=== PATIENT | female | born 1950 | race Two or more races ===

== ENCOUNTER 2020-12-15 23:59 | Emergency (ER) | payer OTHER, MEDICAID ==
[~2020-12-15] VITALS: Ht 172.7 cm; Wt 77.1 kg
[2020-12-16 00:05] VITALS: BP 134/63
[2020-12-16] MEDS ORDERED: ONDANSETRON ODT 4 MG TAB PO ONE (01:45)
[2020-12-16] MEDS ORDERED: ACETAMINOPHEN 500 MG TAB PO ONE (01:45)
== END 2020-12-16 06:28 | disposition home or self-care (01) ==
LOC: ER 12-16 00:07
DX: S06.0X0A Concussion without loss of consciousness, initial encounter (principal); S13.4XXA Sprain of ligaments of cervical spine, initial encounter; S73.102A Unspecified sprain of left hip, initial encounter; R07.89 Other chest pain; I11.0 Hypertensive heart disease with heart failure; I50.9 Heart failure, unspecified; Z86.73 Personal history of transient ischemic attack (TIA), and cerebral infarction without residual deficits; Z90.710 Acquired absence of both cervix and uterus; Y04.2XXA Assault by strike against or bumped into by another person, initial encounter; Y93.89 Activity, other specified; Y92.89 Other specified places as the place of occurrence of the external cause; Y99.8 Other external cause status
CPT/HCPCS: 70450; 71250; 72125; 74176; 99285; Q0162

== ENCOUNTER 2021-02-14 08:44 | Emergency (ER) | payer OTHER, MEDICAID ==
[2021-02-14] MEDS ORDERED: SODIUM CHLORIDE 0.9% 1,000 ML IV ONE (09:15)
[2021-02-14] MEDS ORDERED: ONDANSETRON HCL 4 MG/2 ML VIAL IV ONE (09:45)
[2021-02-14] MEDS ORDERED: MORPHINE SULFATE INJECTION 2 MG/ML SYRG IV ONE (09:45)
[2021-02-14 10:35] LABS: Basophils # (auto) 0 10 ^3/uL (0-0.2); Basophils % (auto) 0.5 % (0.0-2.0); Eosinophils # (auto) 0.1 10 ^3/uL (0-0.8); Eosinophils % (auto) 1.2 % (0.0-7.0); Hematocrit 42.4 % (36.0-46.0); Hemoglobin 14.2 g/dL (12.2-16.2); Lymphocytes # (auto) 0.9 10 ^3/uL (0.4-5.4); Lymphocytes % (auto) 19.2 % (10.0-50.0); Mean Corpuscular Hemoglobin 30.4 pg (28.0-32.0); Mean Corpuscular Hgb Conc. 33.5 g/dL (32.0-36.0); Mean Corpuscular Volume 90.8 fL (80.0-100.0); Monocytes # (auto) 0.3 10 ^3/uL (0-1.3); Monocytes % (auto) 6.6 % (0.0-12.0); Neutrophils # (auto) 3.5 10 ^3/uL (1.6-8.6); Neutrophils % (auto) 72.5 % (37.0-80.0); Nucleated Red Blood Cells % 0.2 %; Red Blood Cells 4.67 10^6/uL (4.0-5.20); Red Cell Distribution Width 13.9 % (11.8-14.3); White Blood Cell 4.8 10^3/uL (4.4-10.8)
[2021-02-14 10:40] LABS: Urine Bacteria FEW /hpf (None Seen); Urine Blood Negative /uL (Negative); Urine WBC 6 /hpf (0 - 5)
[2021-02-14 11:28] LABS: Albumin 3.1 g/dL (3.4-5.0); Magnesium 2.5 mg/dL (1.6-2.6)
[2021-02-14 11:30] LABS: BUN/Creatinine Ratio 25.4; Potassium 3.7 mmol/L (3.5-5.1); Total Protein 6.2 g/dL (6.4-8.2)
[2021-02-14 11:37] LABS: Bilirubin, Total 0.9 mg/dL (0.2-1.0)
[2021-02-14 13:23] VITALS: BP 160/70
[2021-02-14] MEDS ORDERED: fentaNYL Drip 2500mCg/250mlNS 250 ML IV SCH (13:45)
== END 2021-02-14 13:41 | disposition home or self-care (01) ==
LOC: ER 08:44 → EDBD 08:44 → ER 13:41
DX: R51.9 Headache, unspecified (principal); M62.838 Other muscle spasm; N39.0 Urinary tract infection, site not specified; E46 Unspecified protein-calorie malnutrition; I11.0 Hypertensive heart disease with heart failure; I50.9 Heart failure, unspecified; Z68.28 Body mass index [BMI] 28.0-28.9, adult; Z86.73 Personal history of transient ischemic attack (TIA), and cerebral infarction without residual deficits; Z90.710 Acquired absence of both cervix and uterus; W19.XXXA Unspecified fall, initial encounter; Y93.89 Activity, other specified; Y92.89 Other specified places as the place of occurrence of the external cause; Y99.8 Other external cause status
CPT/HCPCS: 36415; 70450; 71045; 72125; 80053; 81001; 83735; 85025; 93005; 96361; 96374; 96375; 99285; J2270; J2405; J7030

== ENCOUNTER 2023-10-29 02:52 | Emergency (ER) | payer OTHER, MEDICAID ==
[~2023-10-29] VITALS: Ht 157.5 cm; Wt 65.0 kg
[2023-10-29 03:48] LABS: Basophils # (auto) 0 10 ^3/uL (0-0.2); Basophils % (auto) 0.9 % (0.0-2.0); Eosinophils # (auto) 0.2 10 ^3/uL (0-0.8); Eosinophils % (auto) 4.9 % (0.0-7.0); Hematocrit 36.1 % (36.0-46.0); Hemoglobin 12.4 g/dL (12.2-16.2); Lymphocytes # (auto) 0.9 10 ^3/uL (0.4-5.4); Lymphocytes % (auto) 25.7 % (10.0-50.0); Mean Corpuscular Hemoglobin 31.1 pg (28.0-32.0); Mean Corpuscular Hgb Conc. 34.4 g/dL (32.0-36.0); Mean Corpuscular Volume 90.4 fL (80.0-100.0); Monocytes # (auto) 0.3 10 ^3/uL (0-1.3); Monocytes % (auto) 7.9 % (0.0-12.0); Neutrophils # (auto) 2.1 10 ^3/uL (1.6-8.6); Neutrophils % (auto) 60.6 % (37.0-80.0); Red Blood Cells 3.99 10^6/uL (4.0-5.20); Red Cell Distribution Width 13.6 % (11.8-14.3); White Blood Cell 3.4 10^3/uL (4.4-10.8)
[2023-10-29 03:50] VITALS: PULSE 68; RESP 16; O2SAT 96
[2023-10-29 03:52] LABS: Chloride 115 mmol/L (98-107); Potassium 4.1 mmol/L (3.5-5.1); Sodium 143 mmol/L (136-145)
[2023-10-29 03:53] LABS: Anion Gap 2 (5-15); Calcium 9.2 mg/dL (8.5-10.1); Carbon Dioxide 26 mmol/L (20-30)
[2023-10-29 03:58] LABS: Blood Urea Nitrogen 18 mg/dL (9-23); Glucose 108 mg/dL (74-106)
[2023-10-29 04:00] VITALS: TEMP 98.4
[2023-10-29 08:00] VITALS: PULSE 75; RESP 14; O2SAT 96
[2023-10-29 08:30] LABS: Urine Bacteria FEW /hpf (None Seen); Urine Blood Negative /uL (Negative); Urine Color Yellow (Yellow); Urine Protein, UAD Negative (Negative); Urine Specific Gravity 1.015 (1.001-1.035); Urine Urobilinogen 2 mg/dL (Negative); Urine WBC 54 /hpf (0 - 5); Urine pH 6.5 (5.0-9.0)
[2023-10-29 08:32] LABS: Urine Clarity Cloudy (Clear)
[2023-10-29] MEDS ORDERED: NITR-87 PO (08:48)
[2023-10-29 09:00] VITALS: BP 123/54; PULSE 74; RESP 14; O2SAT 96
== END 2023-10-29 10:54 | disposition home or self-care (01) ==
LOC: EDBD 02:52 → ER 02:52
DX: I11.0 Hypertensive heart disease with heart failure (principal); I50.9 Heart failure, unspecified; E44.1 Mild protein-calorie malnutrition; N39.0 Urinary tract infection, site not specified; Z68.26 Body mass index [BMI] 26.0-26.9, adult; Z86.73 Personal history of transient ischemic attack (TIA), and cerebral infarction without residual deficits; Z90.710 Acquired absence of both cervix and uterus
CPT/HCPCS: 36415; 70450; 80048; 81001; 84484; 85025; 93005

== ENCOUNTER 2024-01-23 12:53 | Emergency (ER) | payer OTHER, MEDICAID ==
[~2024-01-23] VITALS: Ht 157.5 cm; Wt 48.1 kg
[~2024-01-23 12:53] MED LIST: NITR-87 PO
[2024-01-23 13:30] VITALS: PULSE 16; RESP 14; O2SAT 95
[2024-01-23 13:35] VITALS: TEMP 98.6
[2024-01-23 14:13] LABS: Basophils # (auto) 0 10 ^3/uL (0-0.2); Basophils % (auto) 0.5 % (0.0-2.0); Eosinophils # (auto) 0 10 ^3/uL (0-0.8); Hematocrit 38.5 % (36.0-46.0); Hemoglobin 13.2 g/dL (12.2-16.2); Lymphocytes # (auto) 0.8 10 ^3/uL (0.4-5.4); Lymphocytes % (auto) 16.3 % (10.0-50.0); Mean Corpuscular Hemoglobin 30.8 pg (28.0-32.0); Mean Corpuscular Hgb Conc. 34.4 g/dL (32.0-36.0); Mean Corpuscular Volume 89.5 fL (80.0-100.0); Monocytes # (auto) 0.3 10 ^3/uL (0-1.3); Monocytes % (auto) 6.7 % (0.0-12.0); Neutrophils # (auto) 3.6 10 ^3/uL (1.6-8.6); Neutrophils % (auto) 75.5 % (37.0-80.0); Nucleated Red Blood Cells % 0.1 %; Platelet Count (auto) 129 10^3/uL (140-450); Red Cell Distribution Width 14.3 % (11.8-14.3); White Blood Cell 4.8 10^3/uL (4.4-10.8)
[2024-01-23 14:25] LABS: INR 1.07 (0.9-1.15); Partial Thromboplastin Time 27.1 SEC (24.5-34.5); Prothrombin Time 11.3 sec (9.3-11.8)
[2024-01-23 14:54] LABS: Alanine Aminotransferase 10 U/L (7-40); Alkaline Phosphatase 73 U/L (46-116); Calcium 9.6 mg/dL (8.7-10.4); Chloride 111 mmol/L (98-107)
[2024-01-23 14:55] LABS: Albumin 4.4 g/dL (3.2-4.8); Anion Gap 4 (5-15); Aspartate Aminotransferase 13 U/L (13-40); BUN/Creatinine Ratio 32.4 (10.0-20.0); Bilirubin, Total 1.6 mg/dL (0.2-1.0); Blood Urea Nitrogen 22 mg/dL (9-23); Carbon Dioxide 28 mmol/L (20-30); Glucose 119 mg/dL (74-106); Potassium 3.7 mmol/L (3.5-5.1); Sodium 143 mmol/L (136-145); Total Protein 6.3 g/dL (5.7-8.2)
[2024-01-23 16:00] VITALS: BP 161/65; PULSE 79; RESP 14; O2SAT 98
[2024-01-23 16:24] LABS: Urine Bacteria FEW /hpf (None Seen); Urine Blood Negative /uL (Negative); Urine Clarity Turbid (Clear); Urine Color Dark-Yellow (Yellow); Urine Mucus FEW (None Seen); Urine Protein, UAD TRACE (Negative); Urine Urobilinogen 3 mg/dL (Negative); Urine WBC 5 /hpf (0 - 5); Urine pH 5.5 (5.0-9.0)
[2024-01-23] MEDS ORDERED: NITR-87 PO (17:21)
== END 2024-01-23 17:14 | disposition left against medical advice (07) ==
LOC: ER 12:53 → EDBD 12:53 → ER 17:14
DX: S00.83XA Contusion of other part of head, initial encounter (principal); R07.89 Other chest pain; N39.0 Urinary tract infection, site not specified; I11.0 Hypertensive heart disease with heart failure; I50.9 Heart failure, unspecified; F41.9 Anxiety disorder, unspecified; Z53.29 Procedure and treatment not carried out because of patient's decision for other reasons; Z86.73 Personal history of transient ischemic attack (TIA), and cerebral infarction without residual deficits; Z98.890 Other specified postprocedural states; Z79.899 Other long term (current) drug therapy; W18.39XA Other fall on same level, initial encounter; Y93.89 Activity, other specified; Y92.89 Other specified places as the place of occurrence of the external cause; Y99.8 Other external cause status
CPT/HCPCS: 36415; 70450; 71250; 72125; 80053; 81001; 83735; 83880; 84484; 85025; 85610; 85730; 93005

== ENCOUNTER 2024-06-09 06:35 | Emergency (ER) | payer OTHER, MEDICAID ==
[~2024-06-09] VITALS: Ht 167.6 cm; Wt 57.2 kg
--- NOTE | 2024-06-09 06:51 | ECG ---
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
[2024-06-09] MEDS: LORazepam 0.5 MG TAB PO ONE (07:21)
[2024-06-09] MEDS: HYDROcodone-ACET 5/325MG TAB PO ONE (07:22)
--- NOTE | 2024-06-09 07:48 | ED.PDOC ---
History of Present Illness HPI Comments 74-year-old female brought in by EMS presents with a chief complaint of headache s/p syncope fall at home. Patient states that she was up talking to her and then had a syncopal episode and fell backwards hitting her head on the floor. Patient denies hitting anything on the fall down to the ground. Patient is on Plavix. Patient is alert and oriented x 4. Chief Complaint: Fall Injury Time Seen by MD: 06:55 Primary Care Provider: UNKNOWN Reviewed Notes: Medications, Allergies Allergies: Coded Allergies: NO KNOWN ALLERGIES (Unverified , 01/23/24) Home Meds Active Scripts Nitrofurantoin Monohydrate Mac (Macrobid) 100 Mg Cap, 100 MG PO BID for 7 Days, #14 CAP Prov:KATY APONTE DO 01/23/24 Nitrofurantoin Monohydrate Mac (Macrobid) 100 Mg Cap, 100 MG PO BID for 7 Days, #14 CAP Prov:CARRI MARCELINO MD 10/29/23 Information Source: Patient, Emergency Med Personnel Mode of Arrival: EMS Severity: Moderate Timing: Hours Duration: Since onset Prehospital treatment: None Past Medical History PAST MEDICAL HISTORY: CHF, CVA, HTN Surgical History: Hysterectomy 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: No Pertinent 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 History Family History Family History: Reviewed,noncontributory to illness, No family hx of Cancer, No family hx of DM, No family hx of Heart sierra, No family hx of HTN, No family hx ofKidney sierra, No family hx of Liver sierra, No family hx of Lung sierra, No family hx of Stroke Social History Smoker: Non-Smoker Alcohol: Denies ETOH Use Drugs: Denies Drug Use Lives In: Home Constitutional: denies: chills, diaphoresis, fatigue, fever, malaise, sweats, weakness, others EENTM: denies: blurred vision, double vision, ear bleeding, ear discharge, ear drainage, ear pain, ear ringing, eye pain, eye redness, hearing loss, mouth pain, mouth swelling, nasal discharge, nose bleeding, nose congestion, nose pain, photophobia, tearing, throat pain, throat swelling, voice changes, others Respiratory: denies: cough, hemoptysis, orthopnea, SOB at rest, shortness of breath, SOB with excertion, stridor, wheezing, others Cardiovascular: reports: syncope; denies: chest pain, dizzy spells, diaphoresis, Dyspnea on exertion, edema, irregular heart beat, left arm pain, lightheadedness, palpitations, PND, others Gastrointestinal: denies: abdomen distended, abdominal pain, blood streaked bowels, constipated, diarrhea, dysphagia, difficulty swallowing, hematemesis, melena, nausea, poor appetite, poor fluid intake, rectal bleeding, rectal pain, vomiting, others Genitourinary: denies: abnormal vagina bleeding, burning, dyspareunia, dysuria, flank pain, frequency, hematuria, incontinence, pain, , vagina discharge, urgency, others Neurological: reports: headache; denies: dizziness, fainting, left sided numbness, left sided weakness, numbness, paresthesia, pre-existing deficit, right sided numbness, right sided weakness, seizure, speech problems, tingling, tremors, weakness, others Musculoskeletal: denies: back pain, gout, joint pain, joint swelling, muscle pain, muscle stiffness, neck pain, others Integumetry: denies: bruises, change in color, change in hair/nails, dryness, laceration, lesions, lumps, rash, wounds, others Allergic/Immunocompromised: denies: Difficulty Healing, Frequent Infections, Hives, Itching, others Hematologic/Lymphatic: denies: anemia, blood clots, easy bleeding, easy bruising, swollen glands, others Endocrine: denies: excessive hunger, excessive sweating, excessive thirst, excessive urination, flushing, intolerance to cold, intolerance to heat, unexplained weight gain, unexplained weight loss, others Psychiatric: denies: anxiety, bipolar disorder, depression, hopeless, panic disorder, schizophrenia, sleepless, suicidal, others All Other Systems: Reviewed and Negative Physical Exam General Appearance: Moderate Distress, Thin HEENT: Normal ENT Inspection, Pharynx Normal, TMs Normal Neck: Full Range of Motion, Non-Tender, Normal, Normal Inspection Respiratory: Chest Non-Tender, Lungs Clear, No Accessory Muscle Use, No Respir atory Distress, Normal Breath Sounds Cardiovascular: No Edema, No JVD, No Murmur, No Gallop, Normal Peripheral Pulses, Regular Rate/Rhythm Breast Exam: Deferred Gastrointestinal: Non Tender, No Pulsatile Mass, Normal Bowel Sounds Genitalia: Deferred Pelvic: Deferred Rectal: Deferred Extremities: Non-tender (T and L SPINE), Pedal edema (TRACE), Tender (TO C- SPINE) 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 Was a procedure done?: No EKG EKG : Pulse Rate (adult): 66 [place]: Normal Cardiac Rhythm: NSR Block: None Hypertrophy: LVH ST: Normal Comments No ST changes Differential Dx Considerations may include: SYNCOPE, HEADACHE, NEAR-SYNCOPE , UTI, dehydration, electrolyte abnormality, acute coronary syndrome, intracranial hemorrhage X-Ray, Labs, Meds, VS Vital Signs Date Time Temp Pulse Resp B/P (MAP) Pulse Ox O2 Delivery O2 Flow Rate FiO2 06/09/24 09:00 97.9 64 14 146/67 (93) 99 97.9 06/09/24 07:48 66 06/09/24 06:37 68 06/09/24 06:35 97.8 65 18 178/73 (108) 96 Lab Test 06/09/24 08:16 06/09/24 07:23 Range/Units Troponin I High Sensitivity 5 4 </=34 ng/L White Blood Count 4.7 4.4-10.8 10^3/uL Red Blood Count 4.27 4.0-5.20 10^6/uL Hemoglobin 13.4 12.2-16.2 g/dL Hematocrit 39.4 36.0-46.0 % Mean Corpuscular Volume 92.4 80.0-100.0 fL Mean Corpuscular Hemoglobin 31.4 28.0-32.0 pg Mean Corpuscular Hemoglobin Concent 34.0 32.0-36.0 g/dL Red Cell Distribution Width 14.0 11.8-14.3 % Platelet Count 141 140-450 10^3/uL Mean Platelet Volume 10.7 6.9-10.8 fL Neutrophils (%) (Auto) 70.3 37.0-80.0 % Lymphocytes (%) (Auto) 18.6 10.0-50.0 % Monocytes (%) (Auto) 7.3 0.0-12.0 % Eosinophils (%) (Auto) 3.1 0.0-7.0 % Basophils (%) (Auto) 0.7 0.0-2.0 % Neutrophils # (Auto) 3.3 1.6-8.6 10 ^3/uL Lymphocytes # (Auto) 0.9 0.4-5.4 10 ^3/uL Monocytes # (Auto) 0.3 0-1.3 10 ^3/uL Eosinophils # (Auto) 0.1 0-0.8 10 ^3/uL Basophils # (Auto) 0 0-0.2 10 ^3/uL Nucleated Red Blood Cells 0.1 % Sodium Level 142 136-145 mmol/L Potassium Level 3.9 3.5-5.1 mmol/L Chloride Level 108 H 98-107 mmol/L Carbon Dioxide Level 27 20-31 mmol/L Anion Gap 7 5-15 Blood Urea Nitrogen 16 9-23 mg/dL Creatinine 0.70 0.550-1.02 mg/dL Glomerular Filtration Rate Calc 90 >90 mL/min BUN/Creatinine Ratio 22.9 H 10.0-20.0 Serum Glucose 102 74-106 mg/dL Calcium Level 9.9 8.7-10.4 mg/dL Total Bilirubin 1.8 H 0.2-1.0 mg/dL Aspartate Amino Transferase (AST) 17 13-40 U/L Alanine Aminotransferase (ALT) < 9 7-40 U/L Alkaline Phosphatase 63 46-116 U/L Total Protein 6.1 5.7-8.2 g/dL Albumin 4.3 3.2-4.8 g/dL Current Medications Medications (Trade) Dose Ordered Sig/Blank Route Start Time Stop Time Status Last Admin Acetaminophen/ Hydrocodone Bitart ([place] 5/325MG Tab) 1 tab ONCE ONCE PO 06/09/24 07:15 06/09/24 07:16 DC 06/09/24 07:22 Lorazepam (Ativan Tablet) 0.5 mg ONCE ONCE PO 06/09/24 07:15 06/09/24 07:16 DC 06/09/24 07:21 PATIENT: VALERY GONZALEZCT: [id number]: [id number] : 1950 LOC: ER ROOM / BED: / AGE / SEX: 74 / F ADM STATUS: REG ER SERVICE 2 ORDERING PHYSICIAN: CHAR TO MD PROCEDURE(s): HWOCT - HEAD WITHOUT CONTRAST REASON: RO BRAIN BLEED ORDER NUMBER(s): [id number], ACCESSION NUMBER(s): [id number] EXAM: CT Head Without Intravenous Contrast CLINICAL INDICATION: RO BRAIN BLEED TECHNIQUE: Axial computed tomography images of the head/brain without intravenous contrast. This CT exam was performed using one or more of the following dose reduction techniques: automated exposure control, adjustment of the mA and/or kV according to patient size, and/or use of iterative reconst ruction technique. RADIATION DOSE: CTDlvol= CTDIvol mGy, DLP= 915.13 mGy-cm COMPARISON: CT HEAD WITHOUT CONTRAST on DOS: 01/23/24, CT CERVICAL WITHOUT CONTRAST on DOS: 01/23/24, CT CHEST WITHOUT CONTRAST on DOS: 01/23/24, CT HEAD WITHOUT CONTRAST on DOS: 10/29/23, HEAD WITHOUT CONTRAST on DOS: 02/14/21 FINDINGS: BRAIN AND EXTRA-AXIAL SPACES: The cerebral and cerebellar sulci are prominent consistent with brain atrophy. Areas of decreased attenuation in the deep cerebral white matter are consistent with small vessel ischemic/degenerative changes. No acute intracranial hemorrhage, midline shift or mass effect. BONES/JOINTS: Unremarkable. No acute fracture. SOFT TISSUES: Unremarkable. SINUSES: Unremarkable as visualized. No acute sinusitis. MASTOID AIR CELLS: Small amount of fluid in the left mastoid air cells. OTHER FINDINGS: . . . . IMPRESSION: 1. No acute intracranial hemorrhage, midline shift or mass effect. 2. Generalized brain atrophy. 3. Small vessel ischemic/degenerative changes. 4. If symptoms persist, further evaluation with MRI is recommended. ATED BY: TIRSO SAMANIEGO MD DICTATED DATE/TIME: 06/09/24753 SIGNED BY: TIRSO SAMANIEGO MD SIGNED DATE/TIME: 06/09/24753 PATIENT: COLUMBA GONZALEZ ACCT: [id number] UNIT: [id number] : 1950 LOC: ER ROOM / BED: / AGE / SEX: 74 / F ADM STATUS: REG ER SERVICE [id number] ORDERING PHYSICIAN: CHAR TO MD PROCEDURE(s): CS2 - CERVICAL WITHOUT CONTRAST REASON: POSSIBLE FRACTURE S/P FALL ORDER NUMBER(s): [id number], ACCESSION NUMBER(s): [id number] EXAM: CT Cervical Spine Without Intravenous Contrast CLINICAL INDICATION: POSSIBLE FRACTURE S/P FALL TECHNIQUE: Axial computed tomography images of the cervical spine without intravenous contrast. This CT exam was performed using one or more of the following dose reduction techniques: automated exposure control, adjustment of the mA and/or kV according to patient size, and/or use of iterative reconstruction technique. RADIATION DOSE: CTDlvol= 12 mGy, DLP= 278.17 mGy-cm COMPARISON: CT HEAD WITHOUT CONTRAST on DOS: 01/23/24, CT CERVICAL WITHOUT CONTRAST on DOS: 01/23/24, CT CHEST WITHOUT CONTRAST on DOS: 01/23/24, CT HEAD WITHOUT CONTRAST on DOS: 10/29/23, CERVICAL WITHOUT CONTRAST on DOS: 02/14/21 FINDINGS: VERTEBRAE: Degenerative facet arthropathy throughout the cervical spine. No acute fracture. DISCS/SPINAL CANAL/NEURAL FORAMINA: Degenerative disc disease lower cervical spine. SOFT TISSUES: Unremarkable. OTHER FINDINGS: . . . IMPRESSION: 1. No acute fracture. 2. Degenerative changes cervical spine as described. ATED BY: TIRSO SAMANIEGO MD DICTATED DATE/TIME: 06/09/24755 SIGNED BY: TIRSO SAMANIEGO MD SIGNED DATE/TIME: 06/09/24755 74-year-old female presents here status post syncopal episode. She was talking to her has been and fell forward on her face. She is on Plavix. Does report a headache and some neck pain. CT scan of the brain has been done with no evidence of intracranial hemorrhage. CT C-spine has been done with no evidence of fracture. Urine has been ordered however patient has been unable to urinate for us at this time. Blood work has been done she has a normal CBC and CBC except for an increased bilirubin of 1.8. Troponin is negative. EKG demonstrates no significant ST changes. At this time I have spoken to [place] physician Dr. Grider with authorization 2. [id number]. Patient is stable and they are waiting transfer to [facility]. Time of 1ST Reevaluation: 09:30 Reevaluation 1ST: Unchanged Patient Education/Counseling: Diagnosis, Treatment, Prognosis Family Education/Counseling: Diagnosis, Treatment, Prognosis Departure 1 Departure Time of Disposition: 07:28 Impression: Primary Impression: Syncope Qualified Codes: R55 - Syncope and collapse Additional Impression: Headache Qualified Codes: R51.9 - Headache, unspecified Disposition: 02 SHORT TERM HOSPITAL Admit to: Tele Condition: Fair Critical Care Note Critical Care Time?: No Stability Stability form required: Yes Stable for transfer: To designated facility Heart Score Heart Score: Heart Score Response (Comments) Value History Slightly Suspicious 0 EKG Normal 0 Age >65 2 Risk Factors 1 or 2 risk factors 1 Troponin Normal limit 0 Total 3 I personally scribed for CHAR TO MD ([email or web address]) on 06/09/24 at 07:48. Electronically submitted by Yaw Hernandez ([email or web address]). I personally scribed for CHAR TO MD ([email or web address]) on 06/09/24 at 08:57. Electronically submitted by Yaw Hernandez ([email or web address]). CHAR TO MD Jun 09, 2024 07:48
--- NOTE | 2024-06-09 07:56 | DVH ---
EXAM: CT Head Without Intravenous Contrast CLINICAL INDICATION: RO BRAIN BLEED TECHNIQUE: Axial computed tomography images of the head/brain without intravenous contrast. This CT exam was performed using one or more of the following dose reduction techniques: automated exposure control, adjustment of the mA and/or kV according to patient size, and/or use of iterative reconstru ction technique. RADIATION DOSE: CTDlvol= CTDIvol mGy, DLP= 915.13 mGy-cm COMPARISON: CT HEAD WITHOUT CONTRAST on DOS: 01/23/24, CT CERVICAL WITHOUT CONTRAST on DOS: 01/23/24, C T CHEST WITHOUT CONTRAST on DOS: 01/23/24, CT HEAD WITHOUT CONTRAST on DOS: 10/29/23, HEAD WITHOUT CONTR AST on DOS: 02/14/21 FINDINGS: BRAIN AND EXTRA-AXIAL SPACES: The cerebral and cerebellar sulci are prominent consistent with brain atrophy. Areas of decreased attenuation in the deep cerebral white matter are consistent with small vessel ischemic/degenerative changes. No acute intracranial hemorrhage, midline shift or mass effect . BONES/JOINTS: Unremarkable. No acute fracture. SOFT TISSUES: Unremarkable. SINUSES: Unremarkable as visualized. No acute sinusitis. MASTOID AIR CELLS: Small amount of fluid in the left mastoid air cells. OTHER FINDINGS: . . . . IMPRESSION: 1. No acute intracranial hemorrhage, midline shift or mass effect. 2. Generalized brain atrophy. 3. Small vessel ischemic/degenerative changes. 4. If symptoms persist, further evaluation with MRI is recommended.
--- NOTE | 2024-06-09 07:58 | DVH ---
EXAM: CT Cervical Spine Without Intravenous Contrast CLINICAL INDICATION: POSSIBLE FRACTURE S/P FALL TECHNIQUE: Axial computed tomography images of the cervical spine without intravenous contrast. Thi s CT exam was performed using one or more of the following dose reduction techniques: automated expo sure control, adjustment of the mA and/or kV according to patient size, and/or use of iterative recon struction technique. RADIATION DOSE: CTDlvol= 12 mGy, DLP= 278.17 mGy-cm COMPARISON: CT HEAD WITHOUT CONTRAST on DOS: 01/23/24, CT CERVICAL WITHOUT CONTRAST on DOS: 01/23/24, C T CHEST WITHOUT CONTRAST on DOS: 01/23/24, CT HEAD WITHOUT CONTRAST on DOS: 10/29/23, CERVICAL WITHOUT C ONTRAST on DOS: 02/14/21 FINDINGS: VERTEBRAE: Degenerative facet arthropathy throughout the cervical spine. No acute fracture. DISCS/SPINAL CANAL/NEURAL FORAMINA: Degenerative disc disease lower cervical spine. SOFT TISSUES: Unremarkable. OTHER FINDINGS: . . . IMPRESSION: 1. No acute fracture. 2. Degenerative changes cervical spine as described.
[2024-06-09 08:10] LABS: Basophils # (auto) 0 10 ^3/uL (0-0.2); Basophils % (auto) 0.7 % (0.0-2.0); Eosinophils # (auto) 0.1 10 ^3/uL (0-0.8); Eosinophils % (auto) 3.1 % (0.0-7.0); Hematocrit 39.4 % (36.0-46.0); Hemoglobin 13.4 g/dL (12.2-16.2); Lymphocytes # (auto) 0.9 10 ^3/uL (0.4-5.4); Lymphocytes % (auto) 18.6 % (10.0-50.0); Mean Corpuscular Hemoglobin 31.4 pg (28.0-32.0); Mean Corpuscular Volume 92.4 fL (80.0-100.0); Monocytes # (auto) 0.3 10 ^3/uL (0-1.3); Monocytes % (auto) 7.3 % (0.0-12.0); Neutrophils # (auto) 3.3 10 ^3/uL (1.6-8.6); Neutrophils % (auto) 70.3 % (37.0-80.0); Nucleated Red Blood Cells % 0.1 %; Platelet Count (auto) 141 10^3/uL (140-450); Red Blood Cells 4.27 10^6/uL (4.0-5.20); White Blood Cell 4.7 10^3/uL (4.4-10.8)
[2024-06-09 08:20] LABS: Albumin 4.3 g/dL (3.2-4.8); Alkaline Phosphatase 63 U/L (46-116); Anion Gap 7 (5-15); Aspartate Aminotransferase 17 U/L (13-40); BUN/Creatinine Ratio 22.9 (10.0-20.0); Blood Urea Nitrogen 16 mg/dL (9-23); Calcium 9.9 mg/dL (8.7-10.4); Carbon Dioxide 27 mmol/L (20-31); Glucose 102 mg/dL (74-106); Potassium 3.9 mmol/L (3.5-5.1); Sodium 142 mmol/L (136-145)
[2024-06-09 08:21] LABS: Total Protein 6.1 g/dL (5.7-8.2)
[2024-06-09 08:33] LABS: Alanine Aminotransferase < 9 U/L (7-40); Bilirubin, Total 1.8 mg/dL (0.2-1.0); Chloride 108 mmol/L (98-107)
[2024-06-09 11:30] VITALS: PULSE 66; RESP 12; O2SAT 97
[2024-06-09 15:45] VITALS: BP 168/63; PULSE 81; RESP 12; TEMP 98; O2SAT 94
== END 2024-06-09 16:13 | disposition short-term general hospital (02) ==
LOC: ER 06:35 → EDBD 06:35 → ER 16:13
DX: R55 Syncope and collapse (principal); R51.9 Headache, unspecified; I11.0 Hypertensive heart disease with heart failure; I50.89 Other heart failure; Z86.73 Personal history of transient ischemic attack (TIA), and cerebral infarction without residual deficits; Z90.710 Acquired absence of both cervix and uterus
CPT/HCPCS: 36415; 70450; 72125; 80053; 84484; 85025; 93005